=== PATIENT | female | born 1985 | race African-American/Black ===

== ENCOUNTER 2016-08-25 10:24 | Outpatient (CLI) | payer MEDICAID ==
[~2016-08-25] VITALS: Ht 160 cm; Wt 62.7 kg
[2016-08-25 10:20] VITALS: BP 112/68; PULSE 80; TEMP 98.4
[~2016-08-25 10:24] MED LIST: MACROBID 1100 MG/CAP PO; MOTRIN 600600 MG/TAB PO; PERCOCET 325 MG1 TA2 PO; PRENATAL1 TA1 PO
[2016-08-25] MEDS ORDERED: PRENATAL1 TA7 PO (10:27)
[2016-08-25 10:28] VITALS: BP 112/68; PULSE 80; TEMP 98.4
[2016-08-25] MEDS ORDERED: TYLENOL 500MG500 MG PO (10:28)
[2016-08-25 11:00] VITALS: BP 100/56; PULSE 85
[2016-08-25 11:14] LABS: PH 6 (5-8); SQUAMOUS EPITHELIAL 0-2 /hpf; URINE APPEARANCE Clear; URINE BACTERIA None Seen /hpf; URINE BILIRUBIN Negative (NEGATIVE); URINE BLOOD Negative (NEGATIVE); URINE COLOR Colorless; URINE GLUCOSE Negative (NEGATIVE); URINE KETONE Negative (NEGATIVE); URINE RBC 0-2 /hpf; URINE UROBILINOGEN Negative (NEGATIVE); URINE WBC 0-2 /hpf
[2016-08-25 11:30] VITALS: BP 101/62; PULSE 87
[2016-08-25 11:31] LABS: BASO # 0.1 (0.0-0.2); BASO % 0.5 % (0.0-2.0); EOS % 0.4 % (0-4.0); GRAN % 71.9 % (42.2-75.2); LYMPH # 2.2 (1.2-3.4); LYMPH % 19.5 % (20.0-51.0); MEAN CELL VOLUME 99 fl (80.0-100.0); MEAN CORPUSCULAR HGB CONC 34 g/dl (33.0-37.0); MONO # 0.7 (0.1-0.6); MONO % 6.6 % (1.7-9.3); PLATELET COUNT 207 K/mm3 (130-400); RED BLOOD COUNT 2.88 M/mm3 (4.10-5.30); REDCELL DISTRIBUTION WIDTH-CV 12.6 % (11.5-14.5); WHITE BLOOD COUNT 11.1 K/mm3 (4.8-10.8)
[2016-08-25 11:45] LABS: HEMATOCRIT 28.4 % (37.0-47.0); HEMOGLOBIN 9.6 g/dl (12.5-16.0); MEAN CORPUSCULAR HEMOGLOBIN 33 pg (27.0-31.0)
[2016-08-25 11:57] LABS: ADJUSTED CALCIUM 9.1 mg/dL (8.4-10.2); BILIRUBIN,TOTAL 0.4 mg/dL (0.0-1.0); CALCIUM 8.3 mg/dL (8.4-10.2); CREATININE, serum 0.45 mg/dL (0.52-1.25)
[2016-08-25 11:59] LABS: POTASSIUM 2.9 mmol/L (3.4-5.0)
[2016-08-25 12:00] VITALS: BP 100/55; PULSE 81
[2016-08-25] MEDS ORDERED: K-TAB20 PO (12:15)
[2016-08-25] MEDS ORDERED: PROCARDIA10 MG PO (12:15)
[2016-08-25 12:50] VITALS: BP 110/59; PULSE 103
== END 2016-08-25 12:55 | disposition home or self-care (01) ==
LOC: LDRO 10:24
PROVIDERS: Obstetrics & Gynecology
DX: O60.03 Preterm labor without delivery, third trimester (principal); Z3A.31 31 weeks gestation of pregnancy
CPT/HCPCS: J0702; J7120

== ENCOUNTER 2016-08-25 23:08 | Outpatient (CLI) | payer MEDICAID ==
[~2016-08-25] VITALS: Ht 162.6 cm; Wt 62.7 kg
[~2016-08-25 23:08] MED LIST changes: +K-TAB20 PO; +PRENATAL1 TA7 PO; +PROCARDIA10 MG PO; +TYLENOL 500MG500 MG PO
[2016-08-25 23:29] VITALS: BP 118/73; PULSE 93; TEMP 98.5
[2016-08-25 23:30] VITALS: BP 118/73; PULSE 93; TEMP 98.5
== END 2016-08-26 00:50 | disposition home or self-care (01) ==
LOC: LDRO 23:08
DX: O60.03 Preterm labor without delivery, third trimester (principal); Z3A.31 31 weeks gestation of pregnancy

== ENCOUNTER 2016-09-29 16:14 | Outpatient (CLI) | payer MEDICAID ==
[~2016-09-29] VITALS: Ht 162.6 cm; Wt 68.6 kg
[2016-09-29 16:33] VITALS: BP 111/65; PULSE 76; TEMP 99.1
[2016-09-29] MEDS ORDERED: FIORICET 325 MG1 TA1 PO (16:40)
[2016-09-29 17:00] VITALS: BP 111/65; PULSE 76; TEMP 99.1
[2016-09-29 17:40] VITALS: BP 112/74; PULSE 73
== END 2016-09-29 17:50 | disposition home or self-care (01) ==
LOC: LDRO
DX: O62.9 Abnormality of forces of labor, unspecified (principal); Z3A.36 36 weeks gestation of pregnancy; Z87.891 Personal history of nicotine dependence

== ENCOUNTER 2016-10-01 09:50 | Outpatient (CLI) | payer MEDICAID ==
[~2016-10-01] VITALS: Ht 162.6 cm; Wt 69.1 kg
[~2016-10-01 09:50] MED LIST changes: +FIORICET 325 MG1 TA1 PO
[2016-10-01 09:56] VITALS: BP 109/69; PULSE 81; TEMP 98.3
[2016-10-01 10:30] VITALS: BP 109/69; PULSE 81; TEMP 98.3
[2016-10-01 11:01] VITALS: BP 102/66; PULSE 79
== END 2016-10-01 11:10 | disposition home or self-care (01) ==
LOC: LDRO 09:50
DX: O62.9 Abnormality of forces of labor, unspecified (principal); Z3A.36 36 weeks gestation of pregnancy

== ENCOUNTER 2016-10-06 16:51 | Outpatient (CLI) | payer MEDICAID ==
[~2016-10-06] VITALS: Ht 162.6 cm; Wt 68.6 kg
[2016-10-06 17:05] VITALS: BP 116/71; PULSE 78; TEMP 98
[2016-10-06 17:55] VITALS: BP 114/69; PULSE 79
[2016-10-06 18:08] LABS: PH 6 (5-8); SQUAMOUS EPITHELIAL 0-2 /hpf; URINE APPEARANCE Clear; URINE BACTERIA None Seen /hpf; URINE BILIRUBIN Negative (NEGATIVE); URINE BLOOD Negative (NEGATIVE); URINE COLOR Yellow; URINE GLUCOSE Negative (NEGATIVE); URINE KETONE Negative (NEGATIVE); URINE RBC 0-2 /hpf; URINE UROBILINOGEN Negative (NEGATIVE); URINE WBC 0-2 /hpf
[2016-10-06 19:19] VITALS: BP 109/67; PULSE 70; TEMP 97.9
== END 2016-10-06 19:27 | disposition home or self-care (01) ==
LOC: LDRO 16:51
PROVIDERS: Obstetrics & Gynecology
DX: O62.9 Abnormality of forces of labor, unspecified (principal); Z3A.37 37 weeks gestation of pregnancy

== ENCOUNTER 2016-10-11 03:24 | Outpatient (CLI) | payer MEDICAID ==
[~2016-10-11] VITALS: Ht 162.6 cm; Wt 69.1 kg
[2016-10-11 03:43] VITALS: BP 135/70; PULSE 80; TEMP 98.4
[2016-10-11 04:47] VITALS: BP 112/74; PULSE 72
== END 2016-10-11 05:00 | disposition home or self-care (01) ==
LOC: LDRO 03:24
DX: O62.9 Abnormality of forces of labor, unspecified (principal); Z3A.38 38 weeks gestation of pregnancy; Z87.891 Personal history of nicotine dependence

== ENCOUNTER 2016-10-12 06:08 | Inpatient (IN) | payer MEDICAID ==
[2016-10-12] VITALS (13 sets, daily range): BP systolic 100–139; BP diastolic 58–80; PULSE 66–83; TEMP 97.4–98.2
[~2016-10-12] VITALS: Ht 160 cm; Wt 68.6 kg
[2016-10-12 06:38] LABS: BASO % 0.4 % (0.0-2.0); EOS # 0.1 (0.0-0.7); EOS % 0.5 % (0-4.0); GRAN # 6.2 (1.4-6.5); GRAN % 59.2 % (42.2-75.2); LYMPH # 3.2 (1.2-3.4); LYMPH % 30.3 % (20.0-51.0); MEAN CELL VOLUME 96 fl (80.0-100.0); MEAN CORPUSCULAR HGB CONC 34 g/dl (33.0-37.0); MEAN PLATELET VOLUME 11.3 fl (7.4-10.4); MONO # 0.9 (0.1-0.6); MONO % 8.2 % (1.7-9.3); PLATELET COUNT 246 K/mm3 (130-400); RED BLOOD COUNT 3.37 M/mm3 (4.10-5.30); REDCELL DISTRIBUTION WIDTH-CV 13.4 % (11.5-14.5); WHITE BLOOD COUNT 10.5 K/mm3 (4.8-10.8)
[2016-10-12 06:39] LABS: HEMATOCRIT 32.3 % (37.0-47.0); HEMOGLOBIN 10.9 g/dl (12.5-16.0); MEAN CORPUSCULAR HEMOGLOBIN 32 pg (27.0-31.0)
[2016-10-13 03:30] VITALS: BP 106/69; PULSE 68; TEMP 97.8
[2016-10-13 09:00] VITALS: BP 106/66; PULSE 78; TEMP 97.8
[2016-10-13] MEDS ORDERED: IBU800 M1 PO (12:09)
[2016-10-13] MEDS ORDERED: PERCOCET 325 MG1 TA2 PO (12:10)
[2016-10-13 16:30] VITALS: BP 117/74; PULSE 81; TEMP 97.6
[2016-10-13 20:00] VITALS: BP 134/70; PULSE 84; TEMP 98
[2016-10-14 08:03] VITALS: BP 108/55; PULSE 74; TEMP 97.6
== END 2016-10-14 13:35 | disposition home or self-care (01) | DRG 775 ==
LOC: OB 06:08 → LDR 06:08 → OB 08:18
PROVIDERS: Obstetrics & Gynecology
PROC: 10E0XZZ Delivery of Products of Conception, External Approach (ICD-10-PCS; principal; 2016-10-12)
DX: O34.211 Maternal care for low transverse scar from previous cesarean delivery (principal); O69.81X0 Labor and delivery complicated by cord around neck, without compression, not applicable or unspecified; N85.8 Other specified noninflammatory disorders of uterus; Z3A.38 38 weeks gestation of pregnancy; Z37.0 Single live birth
CPT/HCPCS: J2590; J7120